=== PATIENT | male | born 1975 | race Caucasian/White ===

== ENCOUNTER 2017-02-22 05:14 | Day surgery (SDC) | payer BC ==
[~2017-02-22] VITALS: Ht 185.4 cm; Wt 147.0 kg
[~2017-02-22 05:14] MED LIST: IBUP-1222 PO; NAPR500T3 PO; OXYC-223 PO; TIZA4CAP PO
[2017-02-22] MEDS ORDERED: LACTATED RINGERS 1,000 ML IV SCH (06:06)
[2017-02-22 06:43] VITALS: BP 144/98
[2017-02-22] MEDS ORDERED: THROMBIN 5,000 UNIT VIAL TP ONE (07:04)
[2017-02-22] MEDS ORDERED: BUPIVACAINE/PF-EPI 0.5% 1:200K ONE (07:05)
[2017-02-22] MEDS ORDERED: BACITRACIN 50,000 UNIT ONE (07:05)
[2017-02-22] MEDS ORDERED: MIDAZOLAM 1 MG/ML, 2ML ONE (07:16)
[2017-02-22] MEDS ORDERED: FENTANYL PF 250 MCG/5ML ONE ×2 (07:16→08:52)
[2017-02-22] MEDS ORDERED: DEXAMETHASONE 4 MG/ML, 5ML ONE (07:34)
[2017-02-22] MEDS ORDERED: SUCCINYLCHOLINE 20 MG/ML, 10ML ONE (07:34)
[2017-02-22] MEDS ORDERED: GLYCOPYRROLATE 0.2MG/1ML ONE (07:34)
[2017-02-22] MEDS ORDERED: ROCURONIUM 10 MG/ML ONE (07:34)
[2017-02-22] MEDS ORDERED: PROPOFOL 10 MG/ML, 50ML ONE (07:34)
[2017-02-22] MEDS ORDERED: CEFAZOLIN 1,000 MG ONE (07:34)
[2017-02-22] MEDS ORDERED: NEOSTIGMINE 1 MG/ML, 10ML ONE (07:34)
[2017-02-22] MEDS ORDERED: ONDANSETRON 2MG/ML, 2ML ONE (07:34)
[2017-02-22] MEDS ORDERED: MEPERIDINE/PF 25MG/0.5ML ONE (09:26)
[2017-02-22] MEDS ORDERED: hydrALAzine 20 MG/ML, 1ML IV PRN (09:30)
[2017-02-22] MEDS ORDERED: ACETAMINOPHEN 325 MG TABLET PO PRN (09:30)
[2017-02-22] MEDS ORDERED: FENTANYL PF 100 MCG/2ML IV PRN (09:30)
[2017-02-22] MEDS ORDERED: OXYcodone 5 MG/5 ML ORAL.SOL UDC PO PRN (09:30)
[2017-02-22] MEDS ORDERED: MEPERIDINE/PF 25MG/0.5ML IVPush PRN (09:30)
[2017-02-22] MEDS ORDERED: HALOPERIDOL 5 MG/ML IV PRN (09:30)
[2017-02-22] MEDS ORDERED: METOPROLOL 1 MG/ML, 5ML IV PRN (09:30)
[2017-02-22] MEDS ORDERED: ALBUTEROL/IPRATROPIUM 2.5MG/0.5MG, 3 ML NPPB PRN (09:30)
[2017-02-22] MEDS ORDERED: OXYcodone 5 MG/5 ML ORAL.SOL UDC ONE (09:35)
[2017-02-22] MEDS ORDERED: HYDROmorphone 2 MG/ML, 1ML ONE (09:36)
[2017-02-22] MEDS ORDERED: ACETAMINOPHEN 650 MG/20.3 ML UDC ONE (09:36)
[2017-02-22] MEDS ORDERED: ACETAMINOPHEN 325 MG TABLET ONE (09:36)
[2017-02-22] MEDS: HYDROmorphone 1 MG/ML, 1ML IV PRN ×3 (09:45→10:06)
[2017-02-22] MEDS ORDERED: DIAZEPAM 5 MG/ML, 2ML ONE (10:01)
[2017-02-22] MEDS ORDERED: DIAZEPAM 5 MG/ML, 2ML IV ONE (10:30)
[2017-02-22] MEDS ORDERED: DIAZEPAM ELIXIR 1 MG/ML PO PRN (12:00)
[2017-02-22] MEDS ORDERED: ONDANSETRON 2MG/ML, 2ML IVPush PRN (12:00)
[2017-02-22] MEDS ORDERED: OXYcodone/APAP 7.5/325MG TABLET PO PRN (12:00)
== END 2017-02-22 13:50 | disposition home or self-care (01) ==
LOC: OUT 05:14
PROVIDERS: ATTEND Neurological Surgery
DX: M47.22 Other spondylosis with radiculopathy, cervical region (principal); M48.02 Spinal stenosis, cervical region; E66.01 Morbid (severe) obesity due to excess calories; Z68.41 Body mass index [BMI] 40.0-44.9, adult; Z98.84 Bariatric surgery status; M10.9 Gout, unspecified; Z87.891 Personal history of nicotine dependence; Z82.61 Family history of arthritis; Z83.3 Family history of diabetes mellitus; Z82.49 Family history of ischemic heart disease and other diseases of the circulatory system; Z82.3 Family history of stroke; Z84.1 Family history of disorders of kidney and ureter
CPT/HCPCS: 63020; 63035; 72040; C1713; J0330; J0690; J1100; J1170; J2175; J2250; J2405; J2704; J2710; J3010; J3360; J7120; J3490